=== PATIENT | male | born 1955 | race Caucasian/White ===

== ENCOUNTER 2019-08-30 11:51 | Outpatient (CLI) | payer MEDICARE, SELFPAY ==
--- NOTE | 2019-08-30 | USCV_ITS ---
Stress Echo Ruben Brown Age: 64 Gender: M : 1955 Exam Date: 08/30/2019 12:13 Ordering Phys: Devika Stevens Technologist: Johana Yanes Exam Location: [facility] – [place] Indication: Abnormal EKG Rhythm: Sinus Patient History: Hypertension, Hyperlipidemia, Family history, Former Smoker Cardiac Medications: Aspirin, Dihydropyridine calcium channel dane Medications in past 24 hours: NONE Contrast: Stress Results Protocol: Main Total dose(mL): Exercise Duration (min:sec): 09:00 METS: 10.2 Resting HR: 62 Resting BP: 133 / 85 Peak HR: 145 Peak BP: 216 / 85 Max Predicted HR: 155 94 % Max Predicted HR Target HR: 132 Double Product: 40450 Stress Summary: The patient's target heart rate was achieved The patient exhibited a hypertensive response with stress BP Response: Abnormal increase in BP during/after stress Reason for Termination: Test terminated after reaching target heart rate (85% max predicted) Cardiac Symptoms: Short of Breath ECG Analysis Resting ECG: Please see separate report Stress ECG: Please see separate report Arrhythmia: Please see separate report MEASUREMENTS (Male/Female) Normal Values FINDINGS The baseline echo cardia revealed normal LV size and ejection fraction. The aortic and mitral valves were found to be minimally thickened. Aortic root appears to be normal size. The segmental wall motion analysis revealed relative hypokinesia of the inferolateral segment. With the peak exercise, there was good augmentation of all the segments except the inferolateral wall segment which was not visualized .during the recovery phase, the segmental wall motion reverted back to the baseline CONCLUSIONS Possibly normal echocardiographic response to exercise suggesting no significant coronary ischemia. The study is of somewhat of suboptimal quality since the mid and apical inferolateral segments were not visualized with the peak exercise. Dr Juliano Eldridge MD [facility] (Electronically Signed) Final Date: 30 August 2019 17:58 S
[2019-08-30 11:59] VITALS: BMI 31.1
--- NOTE | 2019-08-30 12:21 | ECG_ITS ---
NAME OF STUDY: TREADMILL STRESS ECHOCARDIOGRAM INDICATION: ABNORMAL EKG PROCEDURE: At the baseline, the patient's blood pressure was 130/85 with a heart rate of 82. The baseline electrocardiogram showed normal sinus rhythm with normal ST-Ts. Some features of right ventricular conduction delay. The patient exercised for 9 minutes on a standard Main protocol. Patient attained a maximum heart rate of 145 beats per minute(93 % of the maximum predicted heart rate) with a blood pressure at the peak exercise of 216/71 mm Hg. The EKG at the peak exercise revealed no significant changes. Patient did not have any chest pain or any significant EKG changes with the exercise During the recovery phase, there were no new changes. Blood pressure at the end of the recovery phase was 128/76 mm Hg with a heart rate of 85 per minute. Echocardiographic pictures were taken at the baseline, immediately following the peak exercise and during the recovery phase. CONCLUSION: 1. No significant EKG changes with the treadmill exercise. 2. No exercise-induced chest pain or cardiac arrhythmia. Hypertensive response to exercise 3. Good exercise tolerance, attained a maximum of 10.2 METs 4. Please see separate report for the echocardiographic response to exercise. Electronically Signed On 09-01-2019 19:50:44 CDT by Juliano Eldridge M.D. [email or web address]
[2019-08-30 12:51] VITALS: BP 128/76; PULSE 82
== END 2019-08-30 11:52 | disposition home or self-care (01) ==
LOC: CDL 11:59
PROVIDERS: PCP Nurse Practitioner Family; Visit Provider Nurse Practitioner Family
DX: R94.31 Abnormal electrocardiogram [ECG] [EKG] (principal)
CPT/HCPCS: 93017; 93350

== ENCOUNTER → 2020-08-01 09:40 | Outpatient (BNVA) | payer MEDICARE, SELFPAY | PROVIDERS: PCP Nurse Practitioner Family; Visit Provider Surgery | DX: K40.90 Unilateral inguinal hernia, without obstruction or gangrene, not specified as recurrent (principal) | CPT/HCPCS: 87635 ==

== ENCOUNTER 2020-08-05 07:07 | Day surgery (SDC) | payer MEDICARE, SELFPAY ==
[2020-08-02 11:44] VITALS: BMI 31.1
[2020-08-05] VITALS (9 sets, daily range): BP systolic 115–165; BP diastolic 80–101; PULSE 62–73; RESP 16–20; TEMP 36.5–36.9; O2SAT 94–100
--- NOTE | 2020-08-05 07:47 | ANES.PREANE2 ---
Pre-Anesthetic Assessment Pre-Anesthetic Assessment: Height/Weight: Height 1.83 m Weight 106.594 kg Temp Pulse Resp BP Pulse Ox 98.5 F 73 16 156/85 99 08/05/20 07:27 08/05/20 07:27 08/05/20 07:27 08/05/20 07:27 08/05/20 07:27 Preop Diagnosis: Inguinal Hernia Proposed Procedure: Operation Date: 08/05/20 08:45 Proposed Procedures p Left lap inguinal hernia repair with mesh placement possible open 99924 k40.90(Left) - Darron Velez MD Was Beta Varun taken within 24 hours: N/A Was Clonidine taken within 24 hours: N/A Last intake: Intake Last Liquid Date 08/04/20 Last Liquid Time 18:00 Last Solid Date 08/04/20 Last Solid Time 18:00 Social: Social History: No alcohol and No tobacco Exam: Pre-Anes Outpt Exam: alert, oriented x 3, clear to auscultation bilaterally and regular rate & rhythm Airway: Submandibular: WNL Cervical ROM: WNL MP: 2 Dentition: Full CV/HEM: CV/HEM: HTN Metabolic: Metabolic: Morbid obesity Anesthetic Plan: ASA status: 2 Anesthesia: General Risk of > 500 ml blood loss (7ml/kg in children): No PFSH Anesthesia PFSH: Family History Other CAD (coronary artery disease) Myocardial infarct Denies family history of Anesthesia complication Bleeding disorder Social History (Updated 08/02/20 @ 11:40 by Pinky Velez) Smoking and tobacco status: former smoker Alcohol intake: current Alcohol intake frequency: few times a week Alcohol type: beer Data Anesthesia Cardiac Studies: No Data to Display
[2020-08-05] MEDS: sodium chloride 0.9% 1,000 ML 30 ML IV (07:48)
[2020-08-05] MEDS: acetaminophen 1,000 MG/100 ML PIGGYBACK 400 MG IV (07:48)
--- NOTE | 2020-08-05 09:05 | W.PM.OPSUD ---
Surgery/Procedure H&P Update DATE OF PROCEDURE: August 05, 2020 DATE H&P PERFORMED: 08/01/20 H&P UPDATE INFORMATION: I have reviewed H&P completed within last 30 days, I have examined patient prior to procedure and No changes to prior documentation PREOP DIAGNOSIS: Inguinal Hernia PRIMARY INDICATION FOR PROCEDURE: THE SAME PLANNED PROCEDURE: Operation Date: 08/05/20 08:45 Proposed Procedures p Left lap inguinal hernia repair with mesh placement possible open [id number] k40.90(Left) - Darron Velez MD
--- NOTE | 2020-08-05 11:15 | PM.OP ---
Operative Report Date of procedure: August 05, 2020 Pre-op Diagnosis: Inguinal Hernia Post-op diagnosis: same (Left inguinal hernia with direct and indirect component) Procedure Done: Laparoscopic left inguinal hernia repair with mesh placement Laparoscopic excision of lipoma of the cord Implants: 3D left large polypropylene mesh Specimens removed/disposition: Hernial sac Lipoma of the cord Surgeon: Darron Velez Casting Molder: locate technician Carla Amaya/medical student Evy Blue Circulating nurse Linnea Anesthesia: General (GETA INSPECTOR TESTER SORTER Fani) Estimated blood loss (mL): 20 Condition: stable Disposition: same day Brief History: Symptomatic left inguinal hernia, full H&P and informed consent per chart Procedure: Transabdominal preperitoneal (KAITLIN) approach. Patient was identified in the holding area ,patient was taken to the operating room where he was placed in supine position, with both arms were tucked, antibiotic was given with induction, endotracheal tube was placed per anesthesia, Giles catheter was inserted by the circulating nurse and revealed clear urine, prep and drape of the abdomen was done under the usual sterile technique. Time-out was done verifying the patient's name/date of /planned procedure destination after the procedure, all were in agreement. SCDs confirmed to be functioning, preoperative antibiotics administered per protocol, and beta dane protocol was confirmed. A vertical skin incision of 1.2 cm was made with 11 blade knife through the supra umbilicus , incision was carried down to the subcutaneous tissue and deepened to identify the anterior fascia, two stay sutures were applied to the fascia, and safe entrance to the abdominal cavity was achieved, a Schultz trocar technique safe entry to the abdominal cavity was achieved verified by using 10 mm zero degree laparoscopy, switched to a 30 degrees scope,low flow followed by a higher flow of CO2 gas up to 15 mmHg. There was no evidence of injury to intra-abdominal structures from the port entry, attention was deviated to both groins, there was a large indirect hernia defect with herniation of peritoneum and preperitoneal fat was noted on the right side, two 5 mm ports were placed on the right and left lateral aspect of the abdomen slightly above the level of the umbilicus, under direct visualization, anesthesia 2% lidocaine local was injected at all trocar sites prior to incisions. There was no evidence of inguinal hernia on the right side. The peritoneum above the level of the iliopubic tract was incised to the RIGHT of the midline and dissection was performed to create a preperitoneal space medial to lateral aspect up to anterior superior iliac spine on the LEFT side. Dissection was continued onto the medial aspect and the LEFT spermatic was identified, there was evidence of direct inguinal hernia .the sac was dissected. As it applied medial to the LEFT inferior epigastric vessels/ dissection was performed to clear the space lateral to the spermatic cord and dorsomedial to it, the hernia sac was reduced and retracted far back, also there was evidence of a large indirect inguinal hernia that was dissected in addition to lipoma of the cord both were dissected and excised. Sent for permanent pathology. Dissection carried by harmonic scalpel under direct visualization. Then a large 3-D mesh was rolled and placed into the abdominal cavity through the Schultz port, after the mesh was introduced it was positioned to lie in the myopectineal orifice and the mesh was unrolled and this covered the entire my myope pectineal orifice. Intra-abdominal pressure was dropped to 12 mmHg to help placement of the mesh good position On the lateral aspect of the mesh extended up to the anterior superior iliac spine on the medial aspect the mesh crossed the midline onto the RIGHT side, then using absorbable tacks, placed above the iliopubic tract onto the rectus abdominis muscle on the medial aspect and also to the lateral abdominal wall superomedial to the sacroiliac spine, then the mesh was also anchored to the pubis and the Abhi's ligament inferiorly. The peritoneal leaflets were then brought together to cover the mesh and isolated from the other viscera, extra tacks were used to secure the peritoneum in good position. There was a small opening in the peritoneum that was approximated by 5 mm clip disaster response director also there was some oozing towards the bottom of the peritoneum at the site of the dissection towards the sigmoid colon 5 mm clips were applied onto the oozing peritoneum. Final look demonstrated good hemostasis and the mesh in good position A total of 20 mL Exparel 40 ml Normal saline 20 ml bupivacaine 0.25% were injected at the remaining of the tacks site and trocar sites as well Final look demonstrated good hemostasis.Then the fascia on the supra umbilical fascial defect was closed using #1 PDS sutures under direct visualization using fascial closure device Johnson Berg.All ports were removed,then the abdomen was desufflated. All skin incisions were closed with 3-0 Vicryl by skin baltazar The patient tolerated the procedure well, Giles catheter was taken out ,got extubated and was taken to the recovery area in stable condition. All counts of instruments, needles and sponges were completed I was present for the whole entire procedure
[2020-08-05] MEDS: fentaNYL 50 mcg/mL INJ 2mL IVP (11:35)
--- NOTE | 2020-08-05 12:03 | SUR.PHASEI ---
1155 PT MORE ALERT TALKATIVE, PT STATES THAT PAIN IS ( MUCH BETTER) PT ASKING ABOUT GOING HOME, REPORT AND HANDOFF AT BEDSIDE IN OPS PT 3 SITES TO LOWER ABD D/I SCROTAL SUPPORT INTACT, IV PATENT . ABD LARGE SOFT.
[2020-08-05] MEDS: HYDROcodone-acetaminophen 5-325 mg Tablet 1 TAB PO (12:09)
--- NOTE | 2020-08-05 14:56 | ANE.PACU2 ---
Inpatient post-anesthesia follow up: Airway intact: Yes Vital signs: Temperature 98.1 F Pulse Rate 70 Respiratory Rate 16 Blood Pressure 115/80 Pulse Oximetry 97 Oxygen Delivery Me thod Room Air Oxygen Flow Rate 8 Fraction of Inspir ed Oxygen Hydration adequate: Yes Nausea and vomiting: No Pain level: 2 Mental status: Baseline
== END 2020-08-05 12:40 | disposition home or self-care (01) ==
PROVIDERS: PCP Nurse Practitioner Family; Visit Provider Surgery
PROC: (CPT 49650; principal; 2020-08-05 08:45)
DX: K40.90 Unilateral inguinal hernia, without obstruction or gangrene, not specified as recurrent (principal); D17.6 Benign lipomatous neoplasm of spermatic cord; I10 Essential (primary) hypertension; E66.01 Morbid (severe) obesity due to excess calories; Z68.31 Body mass index [BMI] 31.0-31.9, adult; Z82.49 Family history of ischemic heart disease and other diseases of the circulatory system; Z87.891 Personal history of nicotine dependence; Z79.82 Long term (current) use of aspirin
CPT/HCPCS: 49650; 88302; 88304; 96365; C1781; C9290; J0360; J0690; J1100; J1170; J2405; J2704; J3010; J3490; J7030

== ENCOUNTER 2020-08-10 08:51 | Observation (INO) | payer MEDICARE, SELFPAY ==
[2020-08-10] VITALS (7 sets, daily range): BP systolic 136–178; BP diastolic 65–108; PULSE 69–77; RESP 18–22; TEMP 36.6–37.3; O2SAT 95–100; BMI 31.1
--- NOTE | 2020-08-10 09:06 | CTR_ITS ---
PROCEDURE INFORMATION: Exam: CT Abdomen And Pelvis With Contrast Exam date and time: 08/10/2020 9:24 AM Age: 65 years old Clinical indication: Abdominal pain; Generalized; Prior surgery; Surgery date: 3-7 days post-operative; Surgery type: Left inguinal hernia repair; Additional info: Abd pain TECHNIQUE: Imaging protocol: Computed tomography of the abdomen and pelvis with contrast. Radiation optimization: All CT scans at this facility use at least one of these dose optimization techniques: automated exposure control; mA and/or kV adjustment per patient size (includes targeted exams where dose is matched to clinical indication); or iterative reconstruction. Contrast material: OMNIPAQUE 300; Contrast volume: 95 ml; Contrast route: INTRAVENOUS (IV); COMPARISON: No relevant prior studies available. RADIATION DOSE METRICS: Total DLP (mGy-cm): 1964.7 FINDINGS: Liver: Normal. No mass. Gallbladder and bile ducts: Normal. No calcified stones. No ductal dilation. Pancreas: Normal. No ductal dilation. Spleen: Normal. No splenomegaly. Adrenal glands: Normal. No mass. Kidneys and ureters: Normal. No hydronephrosis. Stomach and bowel: There is mural thickening of the left-sided colon from the mid transverse colon to the mid sigmoid colon. There is mild hazy infiltration of the surrounding fat. There are descending colon and sigmoid diverticuli. The mural thickening and inflammation appears to be more diffuse than that seen with diverticulitis. Findings may be due to a colitis possibly infectious in nature. Correlate clinically. There is no evidence of bowel obstruction or dilatation. Appendix: No evidence of appendicitis. Intraperitoneal space: There is no free air. Vasculature: Unremarkable. No abdominal aortic aneurysm. Lymph nodes: Unremarkable. No enlarged lymph nodes. Urinary bladder: A small amount of air is present in the urinary bladder possibly from catheterization.. Reproductive: Unremarkable as visualized. Bones/joints: Unremarkable. No acute fracture. Soft tissues: Postsurgical changes are present related to a left inguinal herniorrhaphy. Patchy density at the site of surgery is consistent some postoperative blood and edema. CT/CT abdomen pelvis w con* [id number] IMPRESSION: 1. Status post left inguinal herniorrhaphy. 2. There is mural thickening of the left-sided colon with hazy infiltration of the adjacent fat. Though there are diverticuli in the descending and sigmoid colon the mural thickening appears to be more diffuse and involve a longer length of colon. These findings may be due to a colitis possibly infectious in nature. Radiation Dose CTDIVOL = (mGy): DLP = 1964.7 (mGy-cm)
--- NOTE | 2020-08-10 09:07 | W.ED.ABDPA2 ---
HPI - Abdominal Pain General: Chief Complaint: Abdominal Pain Stated Complaint: ABD PAIN; RECTAL BLEED Time Seen by Provider: 08/10/20 09:01 History of Present Illness: HPI narrative: This patient is a 65-year-old male recently underwent an hernia repair for a inguinal hernia with general surgery here at this facility. Patient states for the past 2 days having significant issues and unable to have a bowel movement and relates it to the pain medicine. But noticed he started having significant rectal pain and started having rectal bleeding. Patient denies any history of hemorrhoids. Patient states started having significant issues with pain in his abdomen. Patient states he is not passing any flatus. Denies nausea vomiting. Will do medical evaluation treat as needed. MD elicited complaint: abdominal pain Pertinent past history: constipation and gastrointestinal bleeding Onset (ago): day(s) Pain Consistency: constant Location: Diffuse Quality: aching Associated Symptoms: Reports hematochezia; Denies chills, dysuria, fever(s), nausea and vomiting Review of Systems General: Reports: 10 or more systems reviewed and unremarkable except in HPI and below Const: Denies: fever(s), chills, body aches or fatigue Eyes: Denies: change in vision or blurry vision ENMT: Denies: throat pain, hoarseness or mouth pain Card: Denies: chest pain, palpitations, irregular heart rhythm, edema, swelling of feet/ankles or lightheadedness Resp: Denies: dyspnea, productive cough, non-productive cough, wheezing or pain on inspiration GI: Reports: abdominal pain, pain on defecation and hematochezia; Denies: nausea or vomiting : Denies: flank pain, dysuria, urinary frequency, urinary urgency or urinary hesitancy Musc: Denies: neck pain, back pain, extremity pain, extremity swelling, joint pain, joint swelling, joint redness, joint warmth or limited range of motion Skin/Breast: Denies: rash, pruritus, erythema or skin tenderness Neuro: Denies: headache(s), numbness in extremities or weakness in extremities Psych: Denies: anxiety or depression PFSH ED PFSH: Medical History Left inguinal hernia Family History Other CAD (coronary artery disease) Myocardial infarct Denies family history of Anesthesia complication Bleeding disorder Social History Smoking and tobacco status: former smoker Alcohol intake: current Alcohol intake frequency: few times a week Alcohol type: beer Physical Exam Const: COMMON NORMALS: no acute distress, average body habitus, patient oriented x3, no limitations, healthy appearing, alert and well nourished HENMT: COMMON NORMALS: normocephalic, atraumatic, external ears normal, EAC's normal, TM's normal bilaterally, Normal external nose present and Normal nasal mucous membranes and turbinates present HEAD & SCALP: normocephalic and atraumatic NOSE: Normal external nose present and Normal nasal mucous membranes and turbinates present EXTERNAL EAR: Yes external ears normal EXTERNAL AUDITORY CANAL: EAC's normal TYMPANIC MEMBRANE: TM's normal bilaterally Neck/C-Spine: COMMON NORMALS: full ROM, no lymphadenopathy, supple, no meningeal signs, no JVD, Thyroid normal and No carotid bruits THYROID: Thyroid normal Chest: COMMONS NORMALS: normal inspection of the chest, normal palpation of entire chest wall, normal inspection of the breasts and normal palpation of the breasts Breast/axilla inspection: Yes normal inspection of the breasts BREAST/AXILLA PALPATION: Yes normal palpation of the breasts Resp: COMMON NORMALS: normal respiratory effort, No retractions, No use of accessory muscles, clear to auscultation bilaterally and percussion normal AUSCULTATION: clear to auscultation bilaterally PERCUSSION: percussion normal Cardio: COMMON NORMALS: no JVD, regular rate, regular rhythm, S1 normal heart sound present, S2 normal heart sound present, No gallops present (Cardio), No clicks present (Cardio), No murmurs present (Cardio), No rub (Cardio) and Peripheral pulses 2+ throughout RATE: regular rate RHYTHM: regular rhythm HEART SOUNDS: S1 normal heart sound present and S2 normal heart sound present PERIPHERAL PULSES: Peripheral pulses 2+ throughout GI: COMMON NORMALS: Normal to inspection, nondistended, normoactive bowel sounds present, Soft to palpation, non-tender, No hepatosplenomegaly present, no masses and no bruits PALPATION: Yes Soft to palpation and Yes No hepatosplenomegaly present : COMMON NORMALS: Yes no CVA tenderness BLADDER/KIDNEY EXAM: Yes no CVA tenderness Back/Pelvis: COMMON NORMALS: no CVA tenderness, thoracic and lumbar spine normal to inspection, no thoracic nor lumbar tenderness, thoraco-lumbar ROM normal and straight leg raise negative bilaterally Extremity: COMMON NORMALS: normal to inspection, full ROM, capillary refill normal, no joint enlargement, no clubbing, cyanosis or edema, no calf tenderness and no pedal edema Neuro: COMMON NORMALS: patient oriented x3 SENSORIUM/ORIENTATION: Yes alert MENINGEAL SIGNS: Yes no meningeal signs Course Reevaluation(s): Reevaluation #1: Patient is much improved. No complaints of significant abdominal pain after pain medication. He is agreeable to admission to the hospital. Time: 11:45 Consultations: Consultation #1: I did discuss at length with Dr. Tong general surgery. He states that he would see the patient as a programmer analyst consultant does agree with admission to observation under the hospitalist service for colitis. Time: 11:06 Consultation #2: Dr. Morrow has agreed to accept this patient for admission for observation Time: 11:45 Vital Signs: Vital signs: Vital Signs Temperature 98.5 F 08/10/20 08:55 Pulse Rate 76 08/10/20 08:55 Respiratory Rate 18 08/10/20 10:30 Blood Pressure 178/108 08/10/20 10:30 Pulse Oximetry 98 08/10/20 10:30 MDM - Abdominal Pain Differential Diagnosis: Differential diagnosis abdominal pain: Likely abdominal pain, acute appendicitis, calculus of kidney, constipation, diverticulitis, endometriosis, gastroenteritis, pancreatitis and small bowel obstruction Medical Records: Attestation: I reviewed the patient's medical records. Lab Data: Attestation: I reviewed the patient's lab results. Labs: Lab Results 08/10/20 08/10/20 08/10/20 Range/Units 09:15 09:15 09:15 WBC 14.7 H (4.0-10.0) 10^3/ uL RBC 4.68 (4.1-5.3) 10^6/u L Hgb 14.1 (11.7-16.6) g/dL Hct 41.5 L (42.0-52.0) % MCV 88.7 (80-94) fL MCH 30.1 (28.0-34.0) pg MCHC 34.0 (30.0-36.0) g/dL RDW 12.1 (12.1-15.1) % Plt Count 218 (130-400) 10^3/c mm MPV 10.2 (7.4-10.4) fL Neut % (Auto) 88.5 % Lymph % (Auto) 6.4 % Sublette % (Auto) 4.6 % Eos % (Auto) 0.0 % Baso % (Auto) 0.1 % Neut # (Auto) 13.02 H (1.8-7.7) 10^3/u L Lymph # (Auto) 0.9 (0.8-4.8) 10^3/u L Sublette # (Auto) 0.7 (0.2-0.9) 10^3/u L Eos # (Auto) 0.0 (0.0-0.8) 10^3/u L Baso # (Auto) 0.0 (0.0-0.1) 10^3/u L Nucleated RBC % (a uto) 0 % Nucleated RBCs # 0.0 /100WBC PT 15.00 H (12.1-14.9) SECO NDS INR 1.15 (0.8-1.2) APTT 28.3 (23.9-36.7) SECO NDS Sodium 136 (136-145) mmol/L Potassium 4.4 (3.5-5.1) mmol/L Chloride 98 (98-107) mmol/L Carbon Dioxide 23 (22-29) mmol/L Anion Gap 19.4 H (5-19) BUN 23 (8-23) mg/dL Creatinine 0.9 (0.7-1.2) mg/dL GFR Calculation 84.4 L (90-130) mL/min Glucose 179 H (65-115) mg/dL Calculated Osmolal ity 290 (285-295) mOsm/k g Lactate (0.5-2.2) mmol/L Calcium 8.5 (8.5-10.5) mg/dL Total Bilirubin 1.1 (0.15-1.2) mg/dL AST 15 (0-40) U/L ALT 15 (0-41) U/L Alkaline Phosphata se 68 (40-130) IU/L Total Protein 7.2 (6.6-8.7) g/dL Albumin 3.7 (3.5-5.2) g/dL Globulin 3.5 (1.3-4.6) g/dL Lipase 6 L (13-60) U/L Urine Color (Yellow) Urine Appearance (CLEAR) Urine pH (5-7) Ur Specific Gravit y (1.005-1.030) Urine Protein (Negative) Urine Glucose (UA) (Normal) Urine Ketones (Negative) Urine Blood (Negative) Urine Nitrate (Negative) Urine Bilirubin (Negative) Urine Urobilinogen (Negative) mg/dL Ur Leukocyte Amelia ase (Negative) Urine RBC (0-2) /hpf Urine WBC (0-5) /hpf Ur Squamous Epith Cells (0-5) /hpf Amorphous Sediment Urine Bacteria (NONE) /hpf Urine Mucus /hpf Blood Type Rho(D) Type Antibody Screen 08/10/20 08/10/20 08/10/20 Range/Units 09:15 09:15 09:15 WBC (4.0-10.0) 10^3/ uL RBC (4.1-5.3) 10^6/u L Hgb (11.7-16.6) g/dL Hct (42.0-52.0) % MCV (80-94) fL MCH (28.0-34.0) pg MCHC (30.0-36.0) g/dL RDW (12.1-15.1) % Plt Count (130-400) 10^3/c mm MPV (7.4-10.4) fL Neut % (Auto) % Lymph % (Auto) % Sublette % (Auto) % Eos % (Auto) % Baso % (Auto) % Neut # (Auto) (1.8-7.7) 10^3/u L Lymph # (Auto) (0.8-4.8) 10^3/u L Sublette # (Auto) (0.2-0.9) 10^3/u L Eos # (Auto) (0.0-0.8) 10^3/u L Baso # (Auto) (0.0-0.1) 10^3/u L Nucleated RBC % (a uto) % Nucleated RBCs # /100WBC PT (12.1-14.9) SECO NDS INR (0.8-1.2) APTT (23.9-36.7) SECO NDS Sodium (136-145) mmol/L Potassium (3.5-5.1) mmol/L Chloride (98-107) mmol/L Carbon Dioxide (22-29) mmol/L Anion Gap (5-19) BUN (8-23) mg/dL Creatinine (0.7-1.2) mg/dL GFR Calculation (90-130) mL/min Glucose (65-115) mg/dL Calculated Osmolal ity (285-295) mOsm/k g Lactate 2.5 H (0.5-2.2) mmol/L Calcium (8.5-10.5) mg/dL Total Bilirubin (0.15-1.2) mg/dL AST (0-40) U/L ALT (0-41) U/L Alkaline Phosphata se (40-130) IU/L Total Protein (6.6-8.7) g/dL Albumin (3.5-5.2) g/dL Globulin (1.3-4.6) g/dL Lipase (13-60) U/L Urine Color Yellow (Yellow) Urine Appearance Hazy A (CLEAR) Urine pH 5 (5-7) Ur Specific Gravit y 1.025 (1.005-1.030) Urine Protein Neg (Negative) Urine Glucose (UA) Trace H (Normal) Urine Ketones 2+ H (Negative) Urine Blood Neg (Negative) Urine Nitrate Negative (Negative) Urine Bilirubin Neg (Negative) Urine Urobilinogen Norm (Negative) mg/dL Ur Leukocyte Amelia ase Negative (Negative) Urine RBC None (0-2) /hpf Urine WBC Rare (0-5) /hpf Ur Squamous Epith Cells None (0-5) /hpf Amorphous Sediment Not Reportable Urine Bacteria Trace (NONE) /hpf Urine Mucus 2+ /hpf Blood Type O Positive Rho(D) Type Positive / 4+ Antibody Screen Negative Imaging Data ^: CT Abd/Pel: Attestation: I personally reviewed and interpreted this imaging study as follows: Radiologist's impression: IMPRESSION: 1. Status post left inguinal herniorrhaphy. 2. There is mural thickening of the left-sided colon with hazy infiltration of the adjacent fat. Though there are diverticuli in the descending and sigmoid colon the mural thickening appears to be more diffuse and involve a longer length of colon. These findings may be due to a colitis possibly infectious in nature. Discharge Plan Discharge Patient Disposition: Placed in Observation Clinical Impression: Acute colitis, Abdominal pain, Elevation of levels of lactic acid dehydrogenase [LDH], Blood in stool, Status post inguinal hernia repair Condition: Stable Prescriptions: No Action atorvastatin 40 mg tablet 40 mg PO DAILY RF: 0 lisinopril 20 mg tablet 20 mg PO DAILY RF: 0 omega-3 fatty acids [Fish Oil Concentrate] 1,000 mg capsule 1,000 mg PO DAILY RF: 0 multivitamin [Multiple Vitamins] Tablet 1 tab PO DAILY RF: 0 glucosamine-chondroitin [Osteo Bi-Flex] 250-200 mg Tablet 1 tab PO DAILY RF: 0 hydrocodone-acetaminophen 5-325 mg tablet 1 tab PO Q6H PRN (Reason: pain) Qty: 28 RF: 0 hydroxyzine pamoate 25 mg capsule 25 - 50 mg PO Q6H PRN (Reason: Anxiety) RF: 0 Referrals: Devika Stevens, CLASSIFICATION ANALYST-C [Primary Care Provider] - Patient Instructions: Abdominal Pain (ED) Coding Level of Care Code 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
[2020-08-10] MEDS: ondansetron 2 mg/ML SDV 2 mL 4 MG IVP ×2 (09:24→16:33)
[2020-08-10] MEDS: sodium chloride 0.9% 500 ML IV ×2 (09:24→11:22)
[2020-08-10 09:27] LABS: Basophils % 0.1 %; Hematocrit 41.5 % (42.0-52.0); Hemoglobin 14.1 g/dL (11.7-16.6); Lymphocytes # 0.9 10^3/uL (0.8-4.8); Lymphocytes % 6.4 %; Mean Corpuscular Hemoglobin 30.1 pg (28.0-34.0); Mean Corpuscular Volume 88.7 fL (80-94); Mean Platelet Volume 10.2 fL (7.4-10.4); Monocytes # 0.7 10^3/uL (0.2-0.9); Monocytes % 4.6 %; Neutrophils # 13.02 10^3/uL (1.8-7.7); Neutrophils % 88.5 %; Nucleated Red Blood Cells % 0 %; Platelet Count 218 10^3/cmm (130-400); Red Blood Count 4.68 10^6/uL (4.1-5.3); Red Cell Distribution Width 12.1 % (12.1-15.1); White Blood Count 14.7 10^3/uL (4.0-10.0)
[2020-08-10 09:51] LABS: Alanine Aminotransferase 15 U/L (0-41); Albumin Level 3.7 g/dL (3.5-5.2); Alkaline Phosphatase 68 IU/L (40-130); Anion Gap 19.4 (5-19); Aspartate Amino Transferase 15 U/L (0-40); Blood Urea Nitrogen 23 mg/dL (8-23); Calcium 8.5 mg/dL (8.5-10.5); Carbon Dioxide 23 mmol/L (22-29); Chloride 98 mmol/L (98-107); Globulin 3.5 g/dL (1.3-4.6); Glomerular Filtration Rate 84.4 mL/min (90-130); Glucose 179 mg/dL (65-115); Lipase 6 U/L (13-60); Osmolality Calculated 290 mOsm/kg (285-295); Potassium 4.4 mmol/L (3.5-5.1); Sodium 136 mmol/L (136-145); Total Bilirubin 1.1 mg/dL (0.15-1.2); Total Protein 7.2 g/dL (6.6-8.7)
[2020-08-10 09:52] LABS: Lactate (Lactic Acid level) 2.5 mmol/L (0.5-2.2)
[2020-08-10 09:55] LABS: Add Urine Microscopic? YES; Bilirubin Urine Neg (Negative); Blood Urine Neg (Negative); Glucose Urine UA Trace (Normal); Ketones Urine 2+ (Negative); Leukocyte Esterase Urine Negative (Negative); Nitrate Urine Negative (Negative); Protein Urine Neg (Negative); Specific Gravity, Urine 1.025 (1.005-1.030); Urine Appearance Hazy (CLEAR); Urine Color Yellow (Yellow); Urobilinogen Urine Norm (Negative); pH Urine 5 (5-7)
[2020-08-10 09:57] LABS: Add Urine Culture? No; Bacteria Urine TRACE /hpf; Mucus Urine 2+ /hpf; WBC Urine RARE /hpf (0-5)
[2020-08-10 10:03] LABS: INR 1.15 (0.8-1.2)
[2020-08-10 10:05] LABS: Partial Thromboplastin Time 28.3 SECONDS (23.9-36.7)
[2020-08-10] MEDS: iohexol 300 mg/mL 100 mL Btl IV (10:17)
[2020-08-10] MEDS: morphine 4 mg/mL SDV 1 mL 2 MG IVP (11:05)
[2020-08-10] MEDS: metroNIDAZOLE IV 500 MG/100 ML PREMIX 100 MG IV (11:22)
--- NOTE | 2020-08-10 14:26 | PM.HP ---
Providers/Chief Complaint Admitting Physician: Joao Holguin MD Primary Care Provider: Devika Stevens BUILDING AND GROUNDS SUPERVISOR-C Chief Complaint: ABD PAIN; RECTAL BLEED History of Present Illness Ruben Brown is a 65 year old male with past medical history of hypertension, hyperlipidemia who recently went laparoscopic left inguinal hernia repair on August [address] Velez presented to the ER today because of abdominal pain and possible denies red blood per rectum for last 2 days. Patient stated since the surgeries he was sent home on pain medication after which he is not having any bowel movements or has been very constipated since he today is Wednesday. In between he took some laxatives and had to try really hard to have a bowel movement subsequently he noticed bright red blood per rectum and it continued overnight so he presented to the ER. He is complaining of abdominal pain and some nausea but denies any vomiting. He denies any fever, cough or difficulty in breathing, chills, sick contacts. He states he is hungry. His blood work in the ER showed a white count of 14.7, hemoglobin of 14.1, INR of 1.1,, sodium 136, potassium 4.1, creatinine 0.9, lactate of 2.5, AST/ALT- 15/15, UA negative for signs for infection. CT abdomen as below. Review of Systems General: Reports: 10 or more systems reviewed and unremarkable except in HPI and below Const: Denies: fever(s), chills, body aches, change in appetite, change in weight, malaise, night sweats, diaphoresis, change in sleep pattern, daytime sleepiness or snoring Eyes: Denies: change in vision, blurry vision, photophobia, eye discomfort or eye discharge ENMT: Denies: throat pain, enlarged tonsils, hoarseness, mouth pain, oral sores, dry mouth, tinnitus, nasal congestion or post nasal drip Card: Denies: chest pain, palpitations, irregular heart rhythm, edema, swelling of feet/ankles, lightheadedness, syncope, pre-syncope, dyspnea on exertion, orthopnea, leg pain with exertion or acrocyanosis Resp: Denies: dyspnea, productive cough, non-productive cough, wheezing, stridor, pain on inspiration, change in phlegm color, hemoptysis or chest congestion GI: Denies: abdominal pain, nausea, vomiting, hematemesis, coffee ground emesis, dysphagia, heartburn, diarrhea, constipation, bloating, GI cramping, change in bowel habits, pain on defecation, hematochezia or melena : Denies: flank pain, difficulty urinating, dysuria, urinary frequency, urinary urgency, urinary hesitancy, urinary dribbling, difficulty starting urination, change in urine stream, nocturia or hematuria Musc: Denies: neck pain, back pain, extremity pain, joint pain, joint swelling, joint redness, joint stiffness or limited range of motion Neuro: Denies: headache(s), numbness in extremities, weakness in extremities, sensory changes, lack of coordination, difficulty walking, frequent falls, dizziness, vertigo, confusion, Slurred speech present, difficulty communicating thoughts or seizure-like activity Psych: Denies: anxiety, depression, mood swings, panic attacks, hopelessness or irritability Endo: Denies: polyuria, polydipsia, tired all the time, cold intolerance, excessive sweating, flushing or heat intolerance Lisandro/Lymph: Denies: easy bruising or easy bleeding All/Imm: Denies: tongue swelling, facial swelling or acute wheezing Medications/Allergies Home Medications Medication Instructions Recorded Confirmed Last Taken Type atorvastatin 40 mg tablet 40 mg PO DAILY 08/01/20 08/10/20 08/04/20 History lisinopril 20 mg tablet 20 mg PO DAILY 08/01/20 08/10/20 08/04/20 History multivitamin 1 tab PO DAILY 08/01/20 08/10/20 08/04/20 History omega-3 fatty acids 1,000 mg 1,000 mg PO DAILY 08/01/20 08/10/20 08/04/20 History capsule glucosamine-chondroitin [Osteo 1 tab PO DAILY 08/02/20 08/10/20 08/04/20 History Bi-Flex] hydrocodone-acetaminophen 1 tab PO Q6H PRN #28 tab 08/05/20 08/10/20 Unknown Rx hydroxyzine pamoate 25 - 50 mg PO Q6H PRN 08/10/20 08/10/20 Unknown History Allergies Allergy/AdvReac Type Severity Reaction Status Date / Time No Known Allergies Allergy Verified 08/05/20 07:25 PFSH Acute PFSH: Medical History (Updated 08/10/20 @ 15:50 by Vineet Tong MD) HTN (hypertension) Hyperlipidemia Left inguinal hernia Obesity (BMI 30.0-34.9) Surgical History (Updated 08/10/20 @ 15:50 by Vineet Tong MD) Biceps tendon rupture Right -- repaired H/O umbilical hernia repair Status post left inguinal hernia repair KAITLIN 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 Family History Other CAD (coronary artery disease) Myocardial infarct Denies family history of Anesthesia complication Bleeding disorder Social History (Updated 08/10/20 @ 15:57 by Vineet Tong MD) Smoking and tobacco status: never smoked Alcohol intake: current Alcohol intake frequency: few times a week Alcohol type: beer Vitals/I&O/Wt Last Vital Signs Temp 98.5 F 08/10/20 13:04 Pulse 77 08/10/20 13:04 Resp 20 H 08/10/20 13:04 BP 156/95 08/10/20 13:04 Pulse Ox 100 08/10/20 13:04 08/09/20 08/10/20 08/10/20 22:59 06:59 14:59 Intake Total 1100 / 1100 Balance 1100 / 1100 Weight last 48 hrs Weight 104.326 kg Physical Exam Narrative: EXAM NARRATIVE: General: No acute distress, AO x3 HEENT: PERRLA, pupils bilaterally equal and reactive Chest: Normal vesicular breath sounds, no added sounds, equal good air entry bilaterally CVS: S1-S2 regular, no murmurs, no tachycardia, no gallops, no rubs Abdomen: Soft, tender in right lower quadrant, no organomegaly, bowel sounds present Neuro: No focal deficits, no facial deformity, AO x3, power 5/5 in all limbs Data : 08/10/20 09:15 08/10/20 09:15 A&P Assessment and plan (1) Abdominal pain: Status: Acute (2) Acute colitis: Status: Acute (3) Blood in stool: Status: Acute (4) Status post inguinal hernia repair: Status: Acute (5) HTN (hypertension): Status: Acute (6) Constipation: Status: Acute Additional A&P Information 65-year-old man with recent history of laparoscopic hernia repair comes in complaining of constipation and possible bright blood per rectum. Hematochezia: Most likely secondary to anorectal trauma from severe constipation or trying excessively hard to have a bowel movement after constipation. Continue to monitor hemoglobin. Aggressive bowel regimen. Check iron panel, reticulocyte count, vitamin B12, folate. Acute colitis: As seen on CT scan. Surgeries consulted from the ER. White count elevated. Lactate elevated. IV fluids with normal saline 100 cc/h. Check blood culture, stool study. Start on Zosyn for now. If remains afebrile and blood cultures remain negative can most likely discontinue antibiotics in next 48 hours. GI soft diet. Hypertension: Continue home medications. We will change medication as per clinical picture. Full code. GI soft diet. Heparin 5000 every 12. Attestations Medical Necessity Statement*: Admission for less than 2 midnights possibly secondary to hematochezia postoperatively Time Spent in Patient Care: Greater than 35 minutes (>than 50% of time spent in counselling and/or direct pt care on unit). Coding Level of Care Code Acute Suction Dredge Dumping Supervisor for Basia Tracy Diagnoses Abdominal pain R10.9 Acute colitis K52.9 Blood in stool K92.1 Status post inguinal hernia repair Z98.890; Z87.19 HTN (hypertension) I10 Constipation K59.00
--- NOTE | 2020-08-10 15:03 | PM.CONSULT ---
Providers/Reason For Consult Consulting Physican/Specialty*: General Surgery Vineet Tong MD Reason for Consult*: Possible sigmoid colitis following laparoscopic left inguinal hernia repair. Attending Physician: Joao Holguin MD Primary Care Provider: Devika Stevens ART OBJECTS SALESPERSON-C History of Present Illness History of Present Illness Ruben Brown is a 65 year old male who underwent a laparoscopic (KAITLIN) left inguinal hernia repair on 08/05/[address] Velez. He says he has been having trouble ever since in the form of constipation. He went home on Lortab and says that he was unaware this was going to constipate him so badly. He says he did not have a bowel movement for 5 days. In the interim he also developed some nausea and vomiting. There was no evidence of hematemesis. He finally took some laxatives and had a very hard and painful bowel movement yesterday. He said he had subsequent bright red blood per rectum and this continued for a while. He got concerned that the bleeding was not stopping and came to the hospital. A CAT scan showed some inflammatory changes in the area of the patient's hernia repair and the colon was adjacent to this and appeared to be somewhat inflamed. The radiologist thought this might represent some colitis. The patient denies abdominal pain other than in the area of surgery. He says all of his incisions appear to be healing well, but he is keeping them covered with Band-Aids because there are skin baltazar present and they rub on his clothes. He denies fevers and chills. He says he is very hungry because he has not eaten much food since surgery. Review of Systems General: Reports: 10 or more systems reviewed and unremarkable except in HPI and below Const: Denies: fever(s) GI: Reports: nausea, vomiting, constipation, pain on defecation and hematochezia Meds/Allergies Home Medications and Allergies Home Medications Medication Instructions Recorded Confirmed Last Taken Type atorvastatin 40 mg tablet 40 mg PO DAILY 08/01/20 08/10/20 08/04/20 History lisinopril 20 mg tablet 20 mg PO DAILY 08/01/20 08/10/20 08/04/20 History multivitamin 1 tab PO DAILY 08/01/20 08/10/20 08/04/20 History omega-3 fatty acids 1,000 mg 1,000 mg PO DAILY 08/01/20 08/10/20 08/04/20 History capsule glucosamine-chondroitin [Osteo 1 tab PO DAILY 08/02/20 08/10/20 08/04/20 History Bi-Flex] hydrocodone-acetaminophen 1 tab PO Q6H PRN #28 tab 08/05/20 08/10/20 Unknown Rx hydroxyzine pamoate 25 - 50 mg PO Q6H PRN 08/10/20 08/10/20 Unknown History Allergies Allergy/AdvReac Type Severity Reaction Status Date / Time No Known Allergies Allergy Verified 08/05/20 07:25 PFSH Acute PFSH: Medical History (Updated 08/10/20 @ 15:41 by Vineet Tong MD) HTN (hypertension) Hyperlipidemia Left inguinal hernia Obesity (BMI 30.0-34.9) Surgical History (Updated 08/10/20 @ 15:50 by Vineet Tong MD) Biceps tendon rupture Right -- repaired H/O umbilical hernia repair Status post left inguinal hernia repair KAITLIN 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 Family History Other CAD (coronary artery disease) Myocardial infarct Denies family history of Anesthesia complication Bleeding disorder Social History Smoking and tobacco status: former smoker Alcohol intake: current Alcohol intake frequency: few times a week Alcohol type: beer Vitals/I&O/Wt Last Vital Signs Temp 98.5 F 08/10/20 13:04 Pulse 77 08/10/20 13:04 Resp 20 H 08/10/20 13:04 BP 156/95 08/10/20 13:04 Pulse Ox 100 08/10/20 13:04 08/10/20 08/10/20 08/10/20 06:59 14:59 22:59 Intake Total 1100 / 1100 Balance 1100 / 1100 Weight last 48 hrs Weight 230 lb Physical Exam Narrative: EXAM NARRATIVE: The patient was encountered in his hospital room. He does not appear to be in any distress. The pupils are equal. No carotid bruits are heard. The lungs are clear anteriorly. The heart is regular. The abdomen is mildly obese and reveals good bowel sounds. He has [address] Band-[address] over his surgical incisions and his abdomen is otherwise unremarkable on inspection. He has the expected amount of tenderness. No obvious masses are palpated. The extremities reveal no edema. He does have partial amputations of the third and fourth digits on the right hand (old). Neurologically the patient is grossly intact. Data Imaging^: CT Abd/Pel: Radiologist's impression: CT scan abdomen/pelvis 08/10/2020 IMPRESSION: 1. Status post left inguinal herniorrhaphy. 2. There is mural thickening of the left-sided colon with hazy infiltration of the adjacent fat. Though there are diverticuli in the descending and sigmoid colon the mural thickening appears to be more diffuse and involve a longer length of colon. These findings may be due to a colitis possibly infectious in nature. A&P Assessment and plan (1) Constipation: It sounds like this was the biggest issue for the patient following surgery. When he finally had a bowel movement he says it was very hard, caused significant anorectal discomfort, and that is when the hematochezia started. I suspect this was more anorectal trauma from the hard bowel movement as opposed to bleeding from the sigmoid colon. Colace/laxatives. Hydration. Okay for a GI soft diet. Status: Acute (2) Hematochezia: As above. Status: Acute (3) Abnormal CT scan, colon: The patient does have some inflammatory change and fluid in the area of his KAITLIN repair, but I do not know that this looks any different from what I would expect. The sigmoid colon sits right in the area and I expect the colon is probably affected by secondary inflammatory changes from the surgery. I doubt this is a primary colitis. I have no problem with the patient being covered on antibiotics while he is here. Continue Zosyn for now. Status: Acute Consult Attestations Medical Necessity Statement: See admitting service's notation. Coding Level of Care Code Acute President + Publisher for [facility] Diagnoses Constipation K59.[address] scan, colon R93.3
[2020-08-10 15:07] LABS: Reticulocyte % 1.4 % (0.5-2.0)
[2020-08-10 15:24] LABS: Lactic Sepsis W/Reflex 1.7 mmol/L (0.5-2.2)
[2020-08-10 15:27] LABS: Iron 40 ug/dL (59-158); Percent Saturation 15.6 % (20-50); Total Iron Binding Capacity 255 mcg/dl; Unsaturated Iron Binding 215 ug/dL (112-347)
[2020-08-10 15:34] LABS: Procalcitonin 0.28 ng/mL (0-0.5)
[2020-08-10 15:41] LABS: Ferritin 395 ng/mL (30-400); Magnesium 1.8 mg/dL (1.7-2.3); Thyroid Stimulating Hormone 0.56 uIU/mL (0.27-4.20); Vitamin B12 591 pg/mL (232-1245)
[2020-08-10] MEDS: piperacillin-tazobactam 3.375 GM in sodium chloride 0.9% (plus) 50 ML IV ×2 (16:21→22:01)
[2020-08-10] MEDS: lactulose oral liq 20 gm/30 mL UDC 10 GM PO (16:22)
[2020-08-10] MEDS: lisinopril 20 mg Tablet PO (16:22)
[2020-08-10] MEDS: magnesium hydroxide 30 mL UDC PO (16:22)
[2020-08-10] MEDS: lactulose oral liq 20 gm/30 mL UDC PO (16:22)
[2020-08-10] MEDS: sodium chloride 0.9% 1,000 ML 100 ML IV (16:37)
[2020-08-10] MEDS: TRAMadol 50 mg Tablet PO (18:04)
[2020-08-10] MEDS: pantoprazole DR 40 mg Tablet PO (18:04)
[2020-08-11] VITALS (10 sets, daily range): BP systolic 102–144; BP diastolic 58–83; PULSE 65–77; RESP 15–20; TEMP 36.7–37.2; O2SAT 93–100
[2020-08-11] MEDS: sodium chloride 0.9% 1,000 ML 100 ML IV ×3 (02:29→22:16)
[2020-08-11] MEDS: TRAMadol 50 mg Tablet PO ×2 (05:33→12:24)
[2020-08-11] MEDS: alum-mag-hydroxide-sime 30 mL UDC 15 ML PO ×2 (05:33→12:23)
[2020-08-11 06:11] LABS: Basophils % 0.2 %; Eosinophils % 0.1 %; Hematocrit 40.9 % (42.0-52.0); Hemoglobin 13.5 g/dL (11.7-16.6); Lymphocytes # 1.3 10^3/uL (0.8-4.8); Lymphocytes % 6.9 %; Mean Corpuscular Hemoglobin 29.9 pg (28.0-34.0); Mean Corpuscular Volume 90.7 fL (80-94); Mean Platelet Volume 10.3 fL (7.4-10.4); Monocytes # 1.6 10^3/uL (0.2-0.9); Monocytes % 8.4 %; Neutrophils # 16.15 10^3/uL (1.8-7.7); Neutrophils % 83.9 %; Nucleated Red Blood Cells % 0 %; Platelet Count 203 10^3/cmm (130-400); Red Blood Count 4.51 10^6/uL (4.1-5.3); Red Cell Distribution Width 12.5 % (12.1-15.1); White Blood Count 19.2 10^3/uL (4.0-10.0)
[2020-08-11 06:30] LABS: Alanine Aminotransferase 12 U/L (0-41); Albumin Level 3.7 g/dL (3.5-5.2); Alkaline Phosphatase 66 IU/L (40-130); Anion Gap 13.8 (5-19); Aspartate Amino Transferase 13 U/L (0-40); Blood Urea Nitrogen 15 mg/dL (8-23); C Reactive Protein 67.9 mg/L (0.0-4.9); Calcium 8.1 mg/dL (8.5-10.5); Carbon Dioxide 26 mmol/L (22-29); Chloride 100 mmol/L (98-107); Globulin 3.1 g/dL (1.3-4.6); Glomerular Filtration Rate 96.7 mL/min (90-130); Glucose 134 mg/dL (65-115); Magnesium 1.9 mg/dL (1.7-2.3); Osmolality Calculated 285 mOsm/kg (285-295); Potassium 3.8 mmol/L (3.5-5.1); Sodium 136 mmol/L (136-145); Total Protein 6.8 g/dL (6.6-8.7)
[2020-08-11 06:31] LABS: Lactate (Lactic Acid level) 1.3 mmol/L (0.5-2.2)
[2020-08-11] MEDS: piperacillin-tazobactam 3.375 GM in sodium chloride 0.9% (plus) 50 ML IV ×3 (07:23→22:17)
[2020-08-11] MEDS: lisinopril 20 mg Tablet PO (07:49)
[2020-08-11] MEDS: atorvastatin 40 mg Tablet PO (07:49)
[2020-08-11] MEDS: pantoprazole DR 40 mg Tablet PO ×2 (07:49→16:58)
[2020-08-11] MEDS: lactulose oral liq 20 gm/30 mL UDC 10 GM PO (08:00)
--- NOTE | 2020-08-11 09:04 | PM.PN ---
Subjective Subjective: Interval history: The patient says he did not end up eating last night because his nausea returned. He says he feels better this morning. He has not had any retching in over 6 hours, which he says is a large improvement. He had a bowel movement this morning that had less blood in it (he left in the bathroom so I could see it). He does not know that his abdomen feels any different and still thinks he feels a little bit bloated. Vitals/I&O/Wt Last Vital Signs Temp 98.1 F 08/11/20 07:43 Pulse 77 08/11/20 07:43 Resp 17 08/11/20 07:43 BP 144/78 08/11/20 07:43 Pulse Ox 98 08/11/20 07:43 08/10/20 08/11/20 08/11/20 22:59 06:59 14:59 Intake Total 290 / 2736.667 1346.667 / 2736.667 Output Total 550 / 1050 500 / 1050 Balance -260 / 1686.667 846.667 / 1686.667 Weight last 48 hrs Weight 191 lb Weight 230 lb Physical Exam Narrative: EXAM NARRATIVE: The patient remains afebrile. His bowel movement that he saved in the bathroom has some small particulate matter of stool and some watery/serosanguineous fluid. Bowel sounds are present. The incisions look good (the patient has removed his Band-Aids). He has the expected amount of tenderness without any evidence for peritonitis. Data : 08/11/20 05:31 08/11/20 05:31 Micro: Microbiology 08/10/20 14:53 Blood Culture - Preliminary Blood SPECIMEN COLLECTED 08/10/20 14:48 Blood Culture - Preliminary Blood SPECIMEN COLLECTED A&P Assessment and plan (1) Constipation: It sounds like this was the biggest issue for the patient following surgery. When he finally had a bowel movement he says it was very hard, caused significant anorectal discomfort, and that is when the hematochezia started. I suspect this was more anorectal trauma from the hard bowel movement as opposed to bleeding from the sigmoid colon. The patient is no longer having any anorectal discomfort. His leukocytosis is worse, however. Clinically he does not look that bad. Continue current management for now. Status: Acute (2) Hematochezia: Slowing down. As above. Status: Acute (3) Abnormal CT scan, colon: On the admission CAT scan, the patient does have some inflammatory change and fluid in the area of his KAITLIN repair, but I do not know that this looked any different from what I would expect. The sigmoid colon sits right in the area and I expect the colon is probably affected by secondary inflammatory changes from the surgery. I doubt this is a primary/unrelated colitis. I have no problem with the patient being covered on antibiotics while he is here. Continue Zosyn for now. Status: Acute Attestations Medical Necessity Statement*: See admitting service's notation. Coding Level of Care Code Acute Biological Photographer for [facility] Diagnoses Constipation K59.[address] scan, colon R93.3
[2020-08-11] MEDS: magnesium hydroxide 30 mL UDC PO (09:38)
[2020-08-11] MEDS: ondansetron 2 mg/ML SDV 2 mL 4 MG IVP ×2 (09:38→18:51)
--- NOTE | 2020-08-11 09:40 | PC.NURSE ---
notified Dr Morrow, patient is requesting something to coat his stomach. He said his last BM was 06/10/20 and it was very small. he said he is passing blood. I put a hat in the bathroom. Read 08/11/20, 08:[address] Morrow Give him prune juice amd milk of magnesia [employer] Consultant put order in for Milk of Magnesia and administered.
[2020-08-11] MEDS: sennosides-docusate Tablet 1 TAB PO (13:07)
[2020-08-11] MEDS: morphine 4 mg/mL SDV 1 mL 1 MG IVP ×2 (13:07→18:58)
--- NOTE | 2020-08-11 15:44 | PM.PN ---
Subjective Subjective: Interval history: No acute events overnight. Patient states he was nauseous overnight but now better.. Patient states he continues to have abdominal pain. Had 2 or 3 bowel movements but less bloodstained as per patient. Afebrile since admission. Vitals/I&O/Wt Last Vital Signs Temp 98.8 F 08/11/20 15:24 Pulse 68 08/11/20 15:24 Resp 15 08/11/20 15:24 BP 102/58 08/11/20 15:24 Pulse Ox 94 08/11/20 15:24 08/11/20 08/11/20 08/11/20 06:59 14:59 22:59 Intake Total 1346.667 / 2736.667 1040 / 1040 Output Total 500 / 1050 275 / 275 Balance 846.667 / 1686.667 765 / 765 Weight last 48 hrs Weight 86.636 kg Weight 104.326 kg Physical Exam Narrative: EXAM NARRATIVE: General: No acute distress, AO x3 HEENT: PERRLA, pupils bilaterally equal and reactive Chest: Normal vesicular breath sounds, no added sounds, equal good air entry bilaterally CVS: S1-S2 regular, no murmurs, no tachycardia, no gallops, no rubs Abdomen: Soft, tender in right lower quadrant, no organomegaly, bowel sounds present Neuro: No focal deficits, no facial deformity, AO x3, power 5/5 in all limbs Data : 08/11/20 05:31 08/11/20 05:31 Micro: Microbiology 08/11/20 12:00 Stool Lactoferrin - Final Stool Enteric Pathogens (PCR) - Final C.difficile Toxin B Gene (PCR) - Final Occult Blood (FIT) - Final 08/10/20 14:53 Blood Culture - Preliminary Blood NEGATIVE TO DATE 08/10/20 14:48 Blood Culture - Preliminary Blood NEGATIVE TO DATE A&P Assessment and plan (1) Abdominal pain: Status: Acute (2) Acute colitis: Status: Acute (3) Blood in stool: Status: Acute (4) Status post inguinal hernia repair: Status: Acute (5) HTN (hypertension): Status: Acute (6) Constipation: Status: Acute Additional A&P Information 65-year-old man with recent history of laparoscopic hernia repair comes in complaining of constipation and possible bright blood per rectum. Hematochezia: Most likely secondary to anorectal trauma from severe constipation or trying excessively hard to have a bowel movement after constipation and less likely colitis Hemoglobin has remained stable we will continue to monitor. Aggressive bowel regimen. Mild iron deficiency anemia. Acute colitis: As seen on CT scan. Appreciate Dr. Tong's recommendation. IV fluids with normal saline 100 cc/h. Stool studies negative for infectious pathology but positive for blood and lactoferrin. For now continue with Zosyn. If patient remains afebrile for next 24 hours will de-escalate antibiotics. GI soft diet. Hypertension: Continue home medications. Full code. GI soft diet. SCD for DVT prophylaxis. Hold off on aspirin because of ongoing hematuria. Low probability of VTE. Attestations Medical Necessity Statement*: Patient requires further hospitalization for management of acute colitis, hematochezia and post inguinal hernia repair status. Time Spent in Patient Care: Greater than 35 minutes (>than 50% of time spent in counselling and/or direct pt care on unit). Coding Level of Care Code Acute Closing Coordinator for [facility] Diagnoses Abdominal pain R10.9 Acute colitis K52.9 Blood in stool K92.1 Status post inguinal hernia repair Z98.890; Z87.19 HTN (hypertension) I10 Constipation K59.00
[2020-08-11] MEDS: docusate sodium 100 mg Capsule 200 MG PO (20:48)
[2020-08-12] VITALS: BP 103/65; PULSE 66; RESP 17; TEMP 37.3; O2SAT 93
[2020-08-12 03:20] VITALS: RESP 16
[2020-08-12] MEDS: morphine 4 mg/mL SDV 1 mL 1 MG IVP (03:20)
[2020-08-12] MEDS: alum-mag-hydroxide-sime 30 mL UDC 15 ML PO ×2 (03:29→08:52)
[2020-08-12 04:00] VITALS: BP 105/66; PULSE 66; RESP 17; TEMP 37.3; O2SAT 93
[2020-08-12 05:36] LABS: Basophils # 0.1 10^3/uL (0.0-0.1); Basophils % 0.4 %; Eosinophils # 0.1 10^3/uL (0.0-0.8); Eosinophils % 0.6 %; Hematocrit 37.3 % (42.0-52.0); Hemoglobin 11.9 g/dL (11.7-16.6); Lymphocytes # 1.5 10^3/uL (0.8-4.8); Lymphocytes % 12.3 %; Mean Corpuscular HGB Conc 31.9 g/dL (30.0-36.0); Mean Corpuscular Hemoglobin 29.5 pg (28.0-34.0); Mean Corpuscular Volume 92.3 fL (80-94); Mean Platelet Volume 10.4 fL (7.4-10.4); Neutrophils # 9.47 10^3/uL (1.8-7.7); Neutrophils % 78.3 %; Nucleated Red Blood Cells % 0 %; Platelet Count 181 10^3/cmm (130-400); Red Blood Count 4.04 10^6/uL (4.1-5.3); Red Cell Distribution Width 12.6 % (12.1-15.1); White Blood Count 12.1 10^3/uL (4.0-10.0)
--- NOTE | 2020-08-12 05:42 | PC.NURSE ---
SHIFT SUMMARY Has rested well tonight. Has received IV Morphine X2 and IV Zofran X1. Has had good relief with meds. Abdomen is soft with some tenderness. Incisions from previous hernia repair are all C&D with baltazar intact. Says is passing gas and reports rumbling in abdomen. X2 small liquid BM's tonight. Says has not seen any blood with last ones and feels is getting better. IV infusing at 100ml/hr rate. Receiving IV antibiotics
[2020-08-12 05:57] LABS: Alanine Aminotransferase 9 U/L (0-41); Albumin Level 3.3 g/dL (3.5-5.2); Alkaline Phosphatase 56 IU/L (40-130); Anion Gap 10.1 (5-19); Aspartate Amino Transferase 10 U/L (0-40); Blood Urea Nitrogen 9 mg/dL (8-23); Calcium 7.8 mg/dL (8.5-10.5); Carbon Dioxide 29 mmol/L (22-29); Chloride 103 mmol/L (98-107); Globulin 2.6 g/dL (1.3-4.6); Glomerular Filtration Rate 96.7 mL/min (90-130); Glucose 99 mg/dL (65-115); Osmolality Calculated 285 mOsm/kg (285-295); Potassium 4.1 mmol/L (3.5-5.1); Sodium 138 mmol/L (136-145); Total Bilirubin 0.8 mg/dL (0.15-1.2); Total Protein 5.9 g/dL (6.6-8.7)
[2020-08-12] MEDS: piperacillin-tazobactam 3.375 GM in sodium chloride 0.9% (plus) 50 ML IV (06:34)
[2020-08-12 07:12] VITALS: BP 130/75; PULSE 66; RESP 15; TEMP 36.9; O2SAT 97
--- NOTE | 2020-08-12 07:45 | PM.PN ---
Subjective Subjective: Interval history: Patient overall feels better. No acute events overnight Medications: Reviewed: Yes Vitals/I&O/Wt Last Vital Signs Temp 98.4 F 08/12/20 07:12 Pulse 66 08/12/20 07:12 Resp 15 08/12/20 07:12 BP 130/75 08/12/20 07:12 Pulse Ox 97 08/12/20 07:12 08/11/20 08/12/20 08/12/20 22:59 06:59 14:59 Intake Total 1518.333 / 2558.333 170 / 2728.333 Balance 1518.333 / 2283.333 170 / 2453.333 Weight last 48 hrs Weight 230 lb 1.6 oz Weight 191 lb Weight 230 lb Physical Exam Narrative: EXAM NARRATIVE: Patient is conscious alert oriented X3 BMI 31.2 Head and neck examination PERRLA no masses no cervical lymphadenopathy no jaundice Cardiac examination audible S1-S2 no murmurs no gallops no arrhythmias Chest is clear bilateral,abscence of Rhonchi or wheezes,no surgical emphysema Abdomen nontender nondistended soft no organomegaly guarding or rigidity/no signs of peritonitis. Incisions are clean dry and intact and skin baltazar in place No scrotal swelling but patient has mild tenderness towards the left hemiscrotum Extremities no cyanosis no clubbing no edema Data : 08/12/20 04:44 08/12/20 04:44 Micro: Microbiology 08/11/20 12:00 Stool Lactoferrin - Final Stool Enteric Pathogens (PCR) - Final Parasite Antigen Panel - Final C.difficile Toxin B Gene (PCR) - Final Occult Blood (FIT) - Final 08/10/20 14:53 Blood Culture - Preliminary Blood NEGATIVE TO DATE 08/10/20 14:48 Blood Culture - Preliminary Blood NEGATIVE TO DATE A&P Assessment and plan (1) Constipation: Patient is a status post laparoscopic left inguinal hernia repair with mesh placement 08/05/2020 by me. Apparently the patient presented to the emergency department with abdominal pain and constipation and he did have a hard bowel movement that ended up by having some anorectal bleeding. Patient was admitted on the hospitalist service with concern of colitis on CT scan being an incidental finding status post surgical repair. Patient overall clinically is doing well and he did get the benefit of IV fluid hydration, IV antibiotics were placed empirically. After thorough history physical examination and reviewing the chart and images of the CT scan of the abdomen and pelvis with my personal interpretation, I do not see the changes mentioned on the colon except postoperative, as the patient did have a large lipoma of the cord and a larger sac of the indirect hernia that required dissection before mesh placement. From surgical standpoint of view patient can have his diet advanced as tolerated with potential discharge home today as long as it is okay from hospital standpoint of view. Empiric Cipro and Flagyl for 1 week course I am not in a position for that. Patient does have an appointment to follow-up with me so we will follow as an outpatient as scheduled Status: Acute (2) Hematochezia: Encourage patient to avoid constipation with appropriate hydration Status: Acute (3) Abnormal CT scan, colon: Postoperative changes appreciated on the CT scan Plan of care; Review the pathology with the patient Return to primary care provider Avoid constipation Avoid seeds nuts and popcorn High Fiber diet; As Fiber softens the stool and helps prevent constipation. High-fiber foods include: ? Beans and legumes ? Bran, whole wheat bread and whole grain cereals such as oatmeal ? Brown and wild rice ? Fruits such as apples, bananas and pears ? Vegetables such as broccoli, carrots, corn and squash ? Whole wheat pasta The target is to eat 25 to 30 grams of fiber daily. Drink at least 8 cups of fluid daily. Fluid will help soften your stool.Exercise also promotes bowel movement and helps prevent constipation. Weight management Assurance and education All questions have been answered Status: Acute Attestations Medical Necessity Statement*: Patient required hospitalization as an inpatient for concern of having colitis after recent hernia repair and history of constipation Time Spent in Patient Care: (>than 50% of time spent in counselling and/or direct pt care on unit). Coding Level of Care Code Acute Insulation Board Calender Operator for [facility] Diagnoses Constipation K59.[address] scan, colon R93.3
[2020-08-12] MEDS: sodium chloride 0.9% 1,000 ML 100 ML IV (08:50)
[2020-08-12] MEDS: lisinopril 20 mg Tablet PO (08:52)
[2020-08-12] MEDS: atorvastatin 40 mg Tablet PO (08:52)
[2020-08-12] MEDS: pantoprazole DR 40 mg Tablet PO (08:53)
[2020-08-12] MEDS: TRAMadol 50 mg Tablet PO (08:54)
[2020-08-12 11:31] VITALS: BP 119/66; PULSE 65; RESP 16; TEMP 36.9; O2SAT 95
--- NOTE | 2020-08-12 11:57 | P.DS_ITS ---
Discharge Providers Date of Admission: 08/10/20 11:54 Date of Discharge: August 12, 2020 Attending Provider at Admission: Joao Holguin MD Attending Provider at Discharge: Joao Holguin MD Consults: Surgery: Dr. Tong/Dr. Velez Primary Care Provider: Devika Stevens Diagnoses at Discharge Discharge Diagnosis (1) Constipation: Status: Acute (2) Hematochezia: Status: Acute (3) Abnormal CT scan, colon: Status: Acute Reason for Visit Reason for Visit: ABD PAIN; RECTAL BLEED Hospital Course Hospital Course Ruben Brown is a 65 year old male with past medical history of hypertension, hyperlipidemia who recently went laparoscopic left inguinal hernia repair on August [address] Velez presented to the ER today because of abdominal pain and possible denies red blood per rectum for last 2 days. Patient stated since the surgeries he was sent home on pain medication after which he is not having any bowel movements or has been very constipated since he today is Wednesday. In between he took some laxatives and had to try really hard to have a bowel movement subsequently he noticed bright red blood per rectum and it continued overnight so he presented to the ER. He is complaining of abdominal pain and some nausea but denies any vomiting. He denies any fever, cough or difficulty in breathing, chills, sick contacts. He states he is hungry. His blood work in the ER showed a white count of 14.7, hemoglobin of 14.1, INR of 1.1,, sodium 136, potassium 4.1, creatinine 0.9, lactate of 2.5, AST/ALT- 15/15, UA negative for signs for infection. CT abdomen as below. Patient admitted to the hospital for further management and evaluation. Surgery was consulted. Patient was treated with broad-spectrum antibiotics and aggressive bowel regimen. He responded well to the treatment his hemoglobin remained stable. Surgery cleared the patient for discharge. As per surgery the patient is supposed to go on empiric Cipro and Flagyl for 1 week and was advised to follow-up with Dr. Velez in 1 week. Patient hospital stay was at home otherwise unremarkable. Physical Exam Narrative: EXAM NARRATIVE: General: No acute distress, AO x3 HEENT: PERRLA, pupils bilaterally equal and reactive Chest: Normal vesicular breath sounds, no added sounds, equal good air entry bilaterally CVS: S1-S2 regular, no murmurs, no tachycardia, no gallops, no rubs Abdomen: Soft, tender in right lower quadrant, no organomegaly, bowel sounds present Neuro: No focal deficits, no facial deformity, AO x3, power 5/5 in all limbs Discharge Data Data Completed and Pending: Completed Studies During Hospitalization Category Date Time Status CT abdomen pelvis w con* [id number] Stat Cat Scan 08/10/20 09:06 Completed Pending at discharge Category Date Time Status Blood Culture Sta t Lab 08/10/20 14:53 Results Labs from last 24 hours 08/12/20 08/12/20 04:44 04:44 WBC 12.1 H RBC 4.04 L Hgb 11.9 Hct 37.3 L MCV 92.3 MCH 29.5 MCHC 31.9 RDW 12.6 Plt Count 181 MPV 10.4 Neut % (Auto) 78.3 Lymph % (Auto) 12.3 Caroline % (Auto) 8.0 Eos % (Auto) 0.6 Baso % (Auto) 0.4 Neut # (Auto) 9.47 H Lymph # (Auto) 1.5 Caroline # (Auto) 1.0 H Eos # (Auto) 0.1 Baso # (Auto) 0.1 Nucleated RBC % (a uto) 0 Nucleated RBCs # 0.0 Sodium 138 Potassium 4.1 Chloride 103 Carbon Dioxide 29 Anion Gap 10.1 BUN 9 Creatinine 0.8 GFR Calculation 96.7 Glucose 99 Calculated Osmolal ity 285 Calcium 7.8 L Total Bilirubin 0.8 AST 10 ALT 9 Alkaline Phosphata se 56 Total Protein 5.9 L Albumin 3.3 L Globulin 2.6 Addt'l Data from Hospital Stay: Laboratory Results WBC 12.1 10^3/uL (4.0 -10.0) H 08/12/20 04:44 RBC 4.04 10^6/uL (4.1 -5.3) L 08/12/20 04:44 Hgb 11.9 g/dL (11.7-1 6.6) 08/12/20 04:44 Hct 37.3 % (42.0-52.0 ) L 08/12/20 04:44 MCV 92.3 fL (80-94) 08/12/20 04:44 MCH 29.5 pg (28.0-34. 0) 08/12/20 04:44 MCHC 31.9 g/dL (30.0-3 6.0) 08/12/20 04:44 RDW 12.6 % (12.1-15.1 ) 08/12/20 04:44 Plt Count 181 10^3/cmm (130 -400) 08/12/20 04:44 MPV 10.4 fL (7.4-10.4 ) 08/12/20 04:44 Neut % (Auto) 78.3 % 08/12/20 04:44 Lymph % (Auto) 12.3 % 08/12/20 04:44 Caroline % (Auto) 8.0 % 08/12/20 04:44 Eos % (Auto) 0.6 % 08/12/20 04:44 Baso % (Auto) 0.4 % 08/12/20 04:44 Reticulocyte % (Au to) 1.4 % (0.5-2.0) 08/10/20 14:48 Neut # (Auto) 9.47 10^3/uL (1.8 -7.7) H 08/12/20 04:44 Lymph # (Auto) 1.5 10^3/uL (0.8- 4.8) 08/12/20 04:44 Caroline # (Auto) 1.0 10^3/uL (0.2- 0.9) H 08/12/20 04:44 Eos # (Auto) 0.1 10^3/uL (0.0- 0.8) 08/12/20 04:44 Baso # (Auto) 0.1 10^3/uL (0.0- 0.1) 08/12/20 04:44 Nucleated RBC % (a uto) 0 % 08/12/20 04:44 Nucleated RBCs # 0.0 /100WBC 08/12/20 04:44 PT 15.00 SECONDS (12 .1-14.9) H 08/10/20 09:15 INR 1.15 (0.8-1.2) 08/10/20 09:15 APTT 28.3 SECONDS (23. 9-36.7) 08/10/20 09:15 Sodium 138 mmol/L (136-1 45) 08/12/20 04:44 Potassium 4.1 mmol/L (3.5-5 .1) 08/12/20 04:44 Chloride 103 mmol/L (98-10 7) 08/12/20 04:44 Carbon Dioxide 29 mmol/L (22-29) 08/12/20 04:44 Anion Gap 10.1 (5-19) 08/12/20 04:44 BUN 9 mg/dL (8-23) 08/12/20 04:44 Creatinine 0.8 mg/dL (0.7-1. 2) 08/12/20 04:44 GFR Calculation 96.7 mL/min (90-1 30) 08/12/20 04:44 Glucose 99 mg/dL (65-115) 08/12/20 04:44 Calculated Osmolal ity 285 mOsm/kg (285- 295) 08/12/20 04:44 Lactic Acid 1.7 mmol/L (0.5-2 .2) 08/10/20 14:48 Lactate 1.3 mmol/L (0.5-2 .2) 08/11/20 05:31 Calcium 7.8 mg/dL (8.5-10 .5) L 08/12/20 04:44 Magnesium 1.9 mg/dL (1.7-2. 3) 08/11/20 05:31 Iron 40 ug/dL (59-158) L 08/10/20 14:48 TIBC 255 mcg/dl 08/10/20 14:48 % Saturation 15.6 % (20-50) L 08/10/20 14:48 Unsat Iron Binding 215 ug/dL (112-34 7) 08/10/20 14:48 Ferritin 395 ng/mL (30-400 ) 08/10/20 14:48 Total Bilirubin 0.8 mg/dL (0.15-1 .2) 08/12/20 04:44 AST 10 U/L (0-40) 08/12/20 04:44 ALT 9 U/L (0-41) 08/12/20 04:44 Alkaline Phosphata se 56 IU/L (40-130) 08/12/20 04:44 C-Reactive Protein 67.9 mg/L (0.0-4. 9) H 08/11/20 05:31 Total Protein 5.9 g/dL (6.6-8.7 ) L 08/12/20 04:44 Albumin 3.3 g/dL (3.5-5.2 ) L 08/12/20 04:44 Globulin 2.6 g/dL (1.3-4.6 ) 08/12/20 04:44 Lipase 6 U/L (13-60) L 08/10/20 09:15 Vitamin B12 591 pg/mL (232-12 45) 08/10/20 14:48 Folate 19.0 ng/mL (4.5-3 2.2) 08/10/20 14:48 Procalcitonin 0.28 ng/mL (0-0.5 ) 08/10/20 14:48 TSH 0.56 uIU/mL (0.27 -4.20) 08/10/20 14:48 Urine Color Yellow (Yellow) 08/10/20 09:15 Urine Appearance Hazy (CLEAR) A 08/10/20 09:15 Urine pH 5 (5-7) 08/10/20 09:15 Ur Specific Gravit y 1.025 (1.005-1.0 30) 08/10/20 09:15 Urine Protein Neg (Negative) 08/10/20 09:15 Urine Glucose (UA) Trace (Normal) H 08/10/20 09:15 Urine Ketones 2+ (Negative) H 08/10/20 09:15 Urine Blood Neg (Negative) 08/10/20 09:15 Urine Nitrate Negative (Negati ve) 08/10/20 09:15 Urine Bilirubin Neg (Negative) 08/10/20 09:15 Urine Urobilinogen Norm mg/dL (Negat sheldon) 08/10/20 09:15 Ur Leukocyte Amelia ase Negative (Negati ve) 08/10/20 09:15 Urine RBC None /hpf (0-2) 08/10/20 09:15 Urine WBC Rare /hpf (0-5) 08/10/20 09:15 Ur Squamous Epith Cells None /hpf (0-5) 08/10/20 09:15 Amorphous Sediment Not Reportable 08/10/20 09:15 Urine Bacteria Trace /hpf (NONE) 08/10/20 09:15 Urine Mucus 2+ /hpf 08/10/20 09:15 Blood Type O Positive 08/10/20 09:15 Rho(D) Type Positive / 4+ 08/10/20 09:15 Antibody Screen Negative 08/10/20 09:15 Impressions Abdomen/Pelvis CT 08/10/20 09:06 IMPRESSION: 1. Status post left inguinal herniorrhaphy. 2. There is mural thickening of the left-sided colon with hazy infiltration of the adjacent fat. Though there are diverticuli in the descending and sigmoid colon the mural thickening appears to be more diffuse and involve a longer length of colon. These findings may be due to a colitis possibly infectious in nature. Radiation Dose CTDIVOL = (mGy): DLP = 1964.7 (mGy-cm) Microbiology 08/11/20 12:00 Stool Stool Lactoferrin - Final 08/11/20 12:00 Stool Enteric Pathogens (PCR) - Final 08/11/20 12:00 Stool Parasite Antigen Panel - Final 08/11/20 12:00 Stool C.difficile Toxin B Gene (PCR) - Final 08/11/20 12:00 Stool Occult Blood (FIT) - Final 08/10/20 14:53 Blood Blood Culture - Preliminary NEGATIVE TO DATE 08/10/20 14:48 Blood Blood Culture - Preliminary NEGATIVE TO DATE Vitals: Last Vital Signs Temp 98.4 F 08/12/20 11:31 Pulse 65 08/12/20 11:31 Resp 16 08/12/20 11:31 BP 119/66 08/12/20 11:31 Pulse Ox 95 08/12/20 11:31 Discharge Plan Discharge Patient Disposition: Home Condition: Stable Prescriptions: New pantoprazole 40 mg Tablet,Delayed Release (Dr/Ec) 40 mg PO BID Qty: 30 RF: 0 ciprofloxacin HCl 500 mg tablet 500 mg PO Q12H Qty: 10 RF: 0 Flagyl 500 mg tablet 500 mg PO TID 5 Days Qty: 15 RF: 0 lactulose 20 gram/30 mL Solution 10 g PO DAILY PRN (Reason: Constipation (see protocol)) Qty: 1200 RF: 0 Kaopectate (docusate calcium) 240 mg capsule 240 mg PO DAILY Qty: 14 RF: 0 Continued atorvastatin 40 mg tablet 40 mg PO DAILY RF: 0 lisinopril 20 mg tablet 20 mg PO DAILY RF: 0 omega-3 fatty acids [Fish Oil Concentrate] 1,000 mg capsule 1,000 mg PO DAILY RF: 0 multivitamin [Multiple Vitamins] Tablet 1 tab PO DAILY RF: 0 glucosamine-chondroitin [Osteo Bi-Flex] 250-200 mg Tablet 1 tab PO DAILY RF: 0 hydrocodone-acetaminophen 5-325 mg tablet 1 tab PO Q6H PRN (Reason: pain) Qty: 28 RF: 0 hydroxyzine pamoate 25 mg capsule 25 - 50 mg PO Q6H PRN (Reason: Anxiety) RF: 0 Discharge Orders: Discharge Order (Routine); Ordered 08/12/20 Ordered By: Joao Holguin Referrals: Darron Velez MD [Physician] - 7-10 days Devika Stevens FNP-C [Primary Care Provider] - 7-10 days Discharge Diet: Usual diet Discharge Activity: Resume usual activity Patient Instructions: Abdominal Pain (ED), Opioid Safety Activity Restrictions/Additional Instructions: Avoid constipation Avoid seeds nuts and popcorn High Fiber diet; As Fiber softens the stool and helps prevent constipation. High-fiber foods include: ? Beans and legumes ? Bran, whole wheat bread and whole grain cereals such as oatmeal ? Brown and wild rice ? Fruits such as apples, bananas and pears ? Vegetables such as broccoli, carrots, corn and squash ? Whole wheat pasta The target is to eat 25 to 30 grams of fiber daily. Drink at least 8 cups of fluid daily. Fluid will help soften your stool.Exercise also promotes bowel movement and helps prevent constipation. Weight management Assurance and education Follow-up with Dr. Velez and your primary care provider within next 1 week. Discharge Attestations Time Spent in Discharge Care*: greater than 30 min Specific Discharge Activities: educating patient, discussing with pcp/other providers, discussing with director of casework services/social workers/dc planners, documenting/other paperwork and evaluating patient/reviewing data Status at Discharge: Cognitive status at discharge: cognitively intact , Behavioral status at discharge: cooperative , Functional status at discharge: independent ambulation Overall status at discharge: patient is back to baseline Quality Metrics Clinical Quality Measures During this hospital stay, did patient experience: None Coding Level of Care Code Acute g DC note Diagnoses Constipation K59.[address] scan, colon R93.3
[2020-08-12 15:08] VITALS: BP 119/66; PULSE 65; RESP 16; TEMP 36.9; O2SAT 95
== END 2020-08-12 15:00 | disposition home or self-care (01) ==
LOC: ER 11:51 → MEDSURG 12:12
PROVIDERS: Surgery; Admitting Provider Student in an Organized Health Care Education/Training Program; Emergency Provider Emergency Medicine; PCP Nurse Practitioner Family; Visit Provider Student in an Organized Health Care Education/Training Program
DX: K59.00 Constipation, unspecified (principal); K92.1 Melena; R93.3 Abnormal findings on diagnostic imaging of other parts of digestive tract; I10 Essential (primary) hypertension; E78.5 Hyperlipidemia, unspecified; Z98.890 Other specified postprocedural states; R10.9 Unspecified abdominal pain; K52.9 Noninfective gastroenteritis and colitis, unspecified; Z87.19 Personal history of other diseases of the digestive system; E66.9 Obesity, unspecified; Z68.31 Body mass index [BMI] 31.0-31.9, adult; Z87.891 Personal history of nicotine dependence
CPT/HCPCS: 36415; 74177; 80053; 81001; 82274; 82607; 82728; 82746; 83540; 83550; 83605; 83630; 83690; 83735; 84145; 84443; 85025; 85045; 85610; 85730; 86140; 86850; 86900; 87040; 87493; 87506; 94664; 96365; 96367; 96375; 96376; 99285; G0378; J2270; J2405; J2543; J7030; J7040; Q9967; S0030

== ENCOUNTER 2021-05-29 13:55 | Observation (INO) | payer MEDICARE, SELFPAY ==
[2021-05-28 14:38] VITALS: BMI 27.8
[2021-05-29] VITALS (11 sets, daily range): BP systolic 122–154; BP diastolic 73–92; PULSE 57–82; RESP 14–18; TEMP 36.4–37; O2SAT 95–100
--- NOTE | 2021-05-29 10:10 | W.PM.OPSFHP ---
Same Day Surgery H&P Indication for Procedure/HPI DATE OF PROCEDURE: May 29, 2021 CHIEF COMPLAINT/INDICATIONFOR SURGICAL PROCEDURE: right inguinal hernia repair PREOP DIAGNOSIS: Right inguinal hernia PLANNED PROCEDURE: Operation Date: 05/29/21 11:40 Proposed Procedures p Laparoscopic Inguinal Hernia Repair [id number]/[id number](Right) - Benji Eckert MD Medications/Allergies* Home Medications Medication Instructions Recorded Confirmed Type atorvastatin 40 mg tablet 40 mg PO DAILY 08/01/20 05/29/21 History lisinopril 20 mg tablet 20 mg PO DAILY 08/01/20 05/29/21 History multivitamin (Multiple Vitamins) 1 tab PO DAILY 08/01/20 05/29/21 History omega-3 fatty acids 1,000 mg 1,000 mg PO DAILY 08/01/20 05/29/21 History capsule (Fish Oil Concentrate) glucosamine-chondroitin 250 mg-200 1 tab PO DAILY 08/02/20 05/29/21 History mg tablet (Osteo Bi-Flex) Allergies/Adverse Reactions Allergy/AdvReac Type Severity Reaction Status Date / Time No Known Allergies Allergy Verified 05/20/21 11:09 Pertinent History/Comorbid Conditions* Medical History (Updated 05/20/21 @ 11:30 by Benji Eckert MD) HTN (hypertension) Hyperlipidemia Surgical History (Updated 05/20/21 @ 11:30 by Benji Eckert MD) Biceps tendon rupture Right -- repaired H/O umbilical hernia repair Status post left inguinal hernia repair KAITLIN 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
--- NOTE | 2021-05-29 10:26 | P.ANESASSM_ITS ---
Pre-Anesthetic Assessment Height/Weight: Height 1.83 m Weight 92.986 kg Temp Pulse Resp BP Pulse Ox 98.6 F 82 18 154/92 97 05/29/21 10:06 05/29/21 10:06 05/29/21 10:06 05/29/21 10:06 05/29/21 10:06 Preop Diagnosis: Right inguinal hernia Operation Date: 05/29/21 11:40 Proposed Procedures p Laparoscopic Inguinal Hernia Repair [id number]/[id number](Right) - Benji Eckert MD Familial anesthetic complications: None Was Beta Varun taken within 24 hours: N/A Was Clonidine taken within 24 hours: N/A Last intake: Intake Last Liquid Date 05/28/21 Last Liquid Time 20:30 Last Solid Date 05/28/21 Last Solid Time 18:00 Social No alcohol and No tobacco Exam alert, oriented x 3, clear to auscultation bilaterally and regular rate & rhythm Airway Submandibular: within normal limits Cervical ROM: within normal limits Mallampati: Class II Dentition: full CV/HEM Hypertension Metabolic Hyperlipidemia Anesthetic Plan ASA status: 2 Anesthesia: General Risk of > 500 ml blood loss (7ml/kg in children): No Medications/Allergies Home Medications Medication Instructions Recorded Confirmed Last Taken Type atorvastatin 40 mg tablet 40 mg PO DAILY 08/01/20 05/29/21 05/28/21 History lisinopril 20 mg tablet 20 mg PO DAILY 08/01/20 05/29/21 05/28/21 History multivitamin (Multiple Vitamins) 1 tab PO DAILY 08/01/20 05/29/21 05/28/21 History omega-3 fatty acids 1,000 mg 1,000 mg PO DAILY 08/01/20 05/29/21 05/28/21 History capsule (Fish Oil Concentrate) glucosamine-chondroitin 250 mg-200 1 tab PO DAILY 08/02/20 05/29/21 05/28/21 History mg tablet (Osteo Bi-Flex) Allergies Allergy/AdvReac Type Severity Reaction Status Date / Time No Known Allergies Allergy Verified 05/20/21 11:09 [facility] Anesthesia Medical History HTN (hypertension) Hyperlipidemia Surgical History Biceps tendon rupture Right -- repaired H/O umbilical hernia repair Status post left inguinal hernia repair KAITLIN 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
--- NOTE | 2021-05-29 12:40 | P.OP_ITS ---
Operative Report Date of procedure: May 29, 2021 Pre-op diagnosis: Reducible right inguinal hernia Post-op diagnosis: 1. 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 Laparoscopic total extraperitoneal repair of right indirect inguinal hernia with 16 x 10cm Surigmax 3D mesh 2. Excision of lipoma of the spermatic cord Pathology: none sent Surgeon: Benji Eckert Anesthesia: General Condition: stable Disposition: PACU Procedure: The patient was taken to the operating room. After IV antibiotic was administered, the abdomen was prepped and draped in a sterile manner. Using a 15 blade, a 1.0 cm transverse incision was made infraumbilically on the right side. Subcutaneous tissue was divided using electrocautery and the anterior rec tus sheath divided using an 11 blade. The rectus muscle was retracted laterally and the extraperitoneal space identified. A 11 mm port was placed and 12 mm of pneumoperitoneum was created. A 10 mm 30? scope was introduced and the retrorectus space was opened using the camera up to the pubic symphysis and 5 mm ports were placed in the midline, one 2-fingerbreadths above the pubic symphysis and the other midway between these two ports under direct visualization. Blunt dissection was carried out to open up the tissue in the midline and to the pubic symphysis, which was identified. The dissection was then carried laterally where the iliopubic tract was identified. There was no femoral, obturator or direct hernia noted. The inferior epigastric artery was identified and dissection was carried posterior to it and laterally, the space was opened up to the level of the umbilicus superior to the anterior superior iliac spine. I then proceeded to dissect out the spermatic cord and the indirect hernial sac was reduced. Patient also had a large lipoma of the spermatic cord which was excised and reduced into the preperitoneal space. 16 x 10cm Surgimax 3D mesh was rolled and introduced through the 10 mm port and then rolled laterally and apposed well against the abdominal wall to cover the myopectineal orifice completely. 10 Cc of 0.5% Marcaine was infiltrated into the preperitoneal space. The extraperitoneal space was desufflated under direct visualization to ensure no slippage of hernial sac under the mesh. All ports were removed, the anterior rectus fascia at the infraumbilical port closed using figure of eight 0 Vicryl sutures, subcutaneous tissue approximated using 3-0 Vicryl sutures and skin at all three port sites were closed using running subcuticular 4-0 Monocryl sutures and Dermabond. 10 mL of 0.5% Marcaine was infiltrated at the port sites. The patient was stable throughout the procedure, extubated and transferred to recovery room.
--- NOTE | 2021-05-29 13:07 | PC.NURSE ---
per dr denis, pt being admitted for overnight observation. due to not having a ride home after surgical procedure despite stating several times prior to procedure that he had a ride and gave a name and phone number
[2021-05-29] MEDS: sodium chloride 0.9% 1,000 ML 30 ML IV (14:05)
--- NOTE | 2021-05-29 14:55 | ANE.PACU2 ---
Inpatient post-anesthesia follow up: Airway intact: Yes Vital signs: Temperature 97.6 F Pulse Rate 67 Respiratory Rate 16 Blood Pressure 130/81 Pulse Oximetry 95 Oxygen Delivery Me thod Room Air Oxygen Flow Rate 5 Fraction of Inspir ed Oxygen Hydration adequate: Yes Nausea and vomiting: No Pain level: 2 Mental status: Baseline
--- NOTE | 2021-05-29 15:41 | PC.NURSE ---
Patient arrived to floor asking for papers to leave. Informed patient that his discharge is set for tomorrow and that hes here for observation following his procedure. Patient kept asking questions about leaving to eat and catching a taxi. Informed patient that lunch is ordered and on way here. Patient refused to keep IV in so it has been removed.
[2021-05-29] MEDS: HYDROcodone-acetaminophen 5-325 mg Tablet 1 TAB PO ×2 (16:09→21:14)
[2021-05-30] VITALS: BP 120/72; PULSE 70; RESP 18; O2SAT 94
[2021-05-30 04:36] VITALS: BP 113/69; PULSE 67; RESP 18; TEMP 36.7; O2SAT 97
[2021-05-30] MEDS: HYDROcodone-acetaminophen 5-325 mg Tablet 1 TAB PO (04:47)
[2021-05-30 08:00] VITALS: BP 155/89; PULSE 79; RESP 18; TEMP 36.6; O2SAT 99
[2021-05-30] MEDS: lisinopril 20 mg Tablet PO (08:26)
--- NOTE | 2021-05-30 09:51 | PC.CHAP ---
Pastoral Care Encounter/Spiritual Assessment Type of Contact [] Declined cnc field service engineer visit [] Patient/Family/Request visit [] Outpatient visit [] Follow-up visit [] Physician referral [] Code/Alert [x] Routine visit [] Staff referral [] Actively dying [] Patient sleeping [] Family support [] [] Out of room [] Palliative care [] [] Receiving care in room [] Pre-surgical visit [] Trauma [] Long length of stay [] ICU visit [] Other: Relational/Emotional Strength x] Patient feels connected with others/family/visitors/staff [] Distress [] Loneliness/isolation [] Abandonment Spirituality of Patient [x] Person of Simona [] Attends Buddhism of their [place] [x] Believes in Prayer [] Reads Bible or Scientologist materials [] There are Spiritual issues to be addressed Reading Recovery Teacher Interventions [x] Prayer [x] Active listening [x] Non-anxious presence [x] Spiritual/emotional support [] Crisis/trauma care [] Spiritual counseling [] Bereavement support [] Provided bereavement packet [] Provided Bible/devotional materials [] Provided toy/stuffed animal, coloring book to patient or family member [] Provided Communion [] Anointing/Sweeny [] Salvation [x] Completed spiritual assessment [] Other: Impact on Illness or Injury [] Angry [] Fearful [] Anxious [] Often cries [] Exhaustion [] Unable to work [] Unable to attend mandaeism [] Unable to walk/stand [] Unable to read [] Unable to drive [] Unable to eat/drink [] Unable to sleep [] Unable to be with family [] Patient intubated [] Other: Summary patient good goung home Time spent with patient 10 min
--- NOTE | 2021-05-30 13:17 | P.DS_ITS ---
Discharge Providers Date of Admission: 05/29/21 13:55 Date of Discharge: May 30, 2021 Attending Provider at Admission: Benji Eckert MD Attending Provider at Discharge: Benji Eckert MD Primary Care Provider: Devika Stevens Reason for Visit Reason for Visit: Right inguinal hernia repair Brief History: This is a 66-year-old male who underwent laparoscopic right inguinal hernia repair with mesh Hospital Course Hospital Course Postoperatively patient did not have any transport and he lived alone though he had previously stated prior to surgery that his friend was going to pick him up and therefore he was admitted overnight for observation. At time of discharge he is tolerating a regular diet, his vital signs are stable and his incision is clean dry and intact Discharge Data Vitals Last Vital Signs Temp 97.8 F 05/30/21 08:00 Pulse 79 05/30/21 08:00 Resp 18 05/30/21 08:00 BP 155/89 05/30/21 08:00 Pulse Ox 99 05/30/21 08:00 Discharge Plan Discharge Patient Disposition: Home Condition: Stable Prescriptions: New hydrocodone-acetaminophen 5-325 mg tablet 1 tab PO Q6H PRN (Reason: pain) Qty: 20 0RF Zofran 4 mg tablet 4 mg PO Q6H PRN (Reason: nausea and vomiting) Qty: 20 0RF Colace 100 mg capsule 100 mg PO BID Qty: 30 0RF Continued atorvastatin 40 mg tablet 40 mg PO DAILY 0RF lisinopril 20 mg tablet 20 mg PO DAILY 0RF omega-3 fatty acids [Fish Oil Concentrate] 1,000 mg capsule 1,000 mg PO DAILY 0RF multivitamin [Multiple Vitamins] Tablet 1 tab PO DAILY 0RF glucosamine-chondroitin [Osteo Bi-Flex] 250-200 mg Tablet 1 tab PO DAILY 0RF Discharge Orders: Discharge Order (Routine); Ordered 05/30/21 Ordered By: Benji Eckert Referrals: Benji Eckert MD [Physician] - 2 weeks (Call Wednesday and make an appointment for 2 weeks. ) Patient Instructions: Hydrocodone/Acetaminophen (By mouth), Laxative, Stool Softeners (By mouth), Ondansetron (By mouth), Inguinal Hernia (DC), Opioid Safety Activity Restrictions/Additional Instructions: Diet Advance to normal diet as tolerated, increase fluid intake as much as possible. Activity Avoid strenuous activity for 2 weeks but continue with daily activities including walking as tolerated. Do not lift more than 10 pounds for 2 weeks Return to work/school You can return to work/ school whenever you feel ready as long as you don?t have to lift more than 10 pounds at work. If you have paperwork that needs to be completed for time off from work, please contact my office Driving You can resume driving once you stop using narcotic pain medications, and transition to non-opioid pain medications like Tylenol, Motrin, Aleve, etc. Medications Pain Take opioid pain medications as prescribed and transition to non-opioid pain medications like Tylenol, Motrin, Aleve etc. over the next few days. The goal of the pain medications is to make the pain bearable and not to be pain free since you recently had surgery. Resume all home medications after surgery as per the medication reconciliation list Nausea Nausea is common after surgery, take nausea medications as needed and stay on a liquid bland diet until nausea resolves. Constipation The combination of surgery, anesthesia and pain medications can result in constipation. Take stool softeners as prescribed. If you do not have a bowel movement in 3 days, please take an [id number] laxative like MiraLAX to address the constipation. Urination Please attempt to urinate every 3-4 hours for the first 24 hours due to high risk of urinary retention after surgery. If you are unable to urinate for 8 to 10 hours you need to return to the emergency room for placement of urinary catheter Shower It is ok to shower but avoid getting the wound wet for 48 hours after surgery. Do not soak in bathtub, swimming pool or hot tub for 2 weeks. Wound care If glue has been used on your incisions after surgery, the glue on the incision will peel slowly over the next two weeks. The stitches used are dissolvable and will not need to be removed. Do not apply antibiotics or other medications on the incision Problems with the wound: you can develop some redness around the incision from bruising after surgery. If there is increasing pain, redness, tenderness around the incision with or without drainage, please contact my office to rule out an infection. Sometimes the skin at the incisions can separate, resulting in reopening of the wound. Cover the wound with antibiotic cream and sterile dressings and contact my office. Contact physician Call the office at [phone] during office hours or go the Emergency Room ?Fever to 100.4 or greater ?Shaking chills ?Pain that increases over time ?Redness, warmth, or pus draining from incision sites ?Persistent nausea or inability to take in liquids Discharge Attestations Time Spent in Discharge Care*: less than 30 min Status at Discharge: Cognitive status at discharge: cognitively intact , Behavioral status at discharge: cooperative , Quality Metrics Clinical Quality Measures [ No reported AMI, CVA or VTE this stay] Coding [facility]
== END 2021-05-30 10:58 | disposition home or self-care (01) ==
LOC: MEDSURG 13:55
PROVIDERS: Admitting Provider Surgery; PCP Nurse Practitioner Family; Visit Provider Surgery
PROC: (CPT 49650; principal; 2021-05-29 11:30)
DX: K40.90 Unilateral inguinal hernia, without obstruction or gangrene, not specified as recurrent (principal); D17.6 Benign lipomatous neoplasm of spermatic cord; I10 Essential (primary) hypertension; E78.5 Hyperlipidemia, unspecified; Z82.49 Family history of ischemic heart disease and other diseases of the circulatory system
CPT/HCPCS: 49650; C1781; G0378; J0690; J1100; J2270; J2405; J2704; J2710; J3010; J3490; J7030